=== PATIENT | female | born 1935 | race Hispanic/Latino ===

== ENCOUNTER 2018-04-06 18:07 | Inpatient (IN) | payer MEDICAID, SELFPAY ==
[2018-04-06 18:42] LABS: #Basophils 0.1 thou/uL (0.0-0.2); #Eosinphils 0.1 thou/uL (0.0-0.7); #Lymphocytes 1.3 thou/uL (1.20-3.40); #Monocytes 0.2 thou/uL (0.11-0.59); #Neutrophils 1.7 thou/uL (1.40-6.50); %Basophils 2.4 % (0.0-1.0); %Eosinophils 2.9 % (0.0-10.0); %Lymphocytes 38.7 % (21.0-51.0); %Monocytes 6.2 % (0.0-10.0); %Neutrophils 49.8 % (42.0-75.0); Hemoglobin 9.7 g/dL (12.0-16.0); Mean Corpuscular HGB CONC 33.9 g/dL (32.0-36.0); Mean Platelet Volume 6.9 fL (7.4-10.4); Platelet Count 150 thou/uL (130-400); RBC Distribution Width 13.5 % (11.5-14.5); Red Blood Cell (RBC) Count 2.84 mill/uL (4.20-5.40); White Blood Cell (WBC) Count 3.3 thou/uL (4.8-10.8)
[2018-04-06 18:52] LABS: PTT 30.2 SEC (22.9-36.1); Prothrombin Time 12.9 SEC (12.0-14.7)
[2018-04-06 19:01] LABS: ALT (SGPT) 14 U/L (8-55); AST (SGOT) 23 U/L (5-34); Albumin 2.3 g/dL (3.4-4.8); Alkaline Phosphatase 123 U/L (40-150); Anion Gap 9 mmol/L (10-20); BUN (Urea Nitrogen) 54 mg/dL (9.8-20.1); Bilirubin, Total 0.2 mg/dL (0.2-1.2); Calc. Creatinine Clearance 0 mL/min (70-130); Calcium 8.2 mg/dL (7.8-10.44); Carbon Dioxide 25 mmol/L (23-31); Chloride 103 mmol/L (98-107); Estimated GFR-MDRD 16; Globulin 3.3 g/dL (2.4-3.5); Glucose 147 mg/dL (83-110); Potassium 5.1 mmol/L (3.5-5.1); Protein, Total 5.6 g/dL (6.0-8.3); Sodium 132 mmol/L (136-145)
[2018-04-06 19:08] LABS: Bilirubin Negative (Negative); Blood, Urine Trace (Negative); Clarity CLOUDY (Clear); Glucose, Urine (Dipstick) 100 mg/dL (Negative); Leukocyte Negative (Negative); Nitrite Negative (Negative); Protein, Urine (Dipstick) 300 mg/dL (Neg-Trace); Specific Gravity, Urine 1.014 (1.002-1.036); Urobilinogen 0.2 mg/dL (0.2-1.0); pH, Urine 6.5 (5.0-9.0)
[2018-04-06 19:10] LABS: Pathc Cast-AUWi Flag 5.08 (0-2.49); WBC/HPF 0-3 HPF (0-3)
[2018-04-06 19:22] LABS: Bacteria/HPF None Seen HPF (None Seen); Hyaline Casts/LPF 0-3 HYALINE CAST LPF (0-3 Hyaline); Manual Microscopic Reviewed? No Path Casts Seen; Renal Epithelial None Seen HPF (0-3); Transitional Epithelial NONE SEEN HPF (0-3)
--- NOTE | 2018-04-06 20:11 | CT ---
CT BRAIN 04/06/18 PROVIDED CLINICAL HISTORY: Slurred speech. FINDINGS: Comparison 08/01/15. The ventricular system appears normal in size and morphology. There is no evidence for intracranial hemorrhage. Chronic microvascular ischemic changes are again noted slightly advanced with respect to the prior study. The extracranial soft tissues and osseous structures demonstrate no acute findings. IMPRESSION: No evidence for intracranial hemorrhage or mass effect. Findings communicated to Dr. Kan at 6:19 p.m., 04/06/18. Code CR POS: ELEN
--- NOTE | 2018-04-06 21:06 | RAD ---
PORTABLE CHEST 04/06/18 PROVIDED CLINICAL HISTORY: Speech changes. FINDINGS: Comparison 08/13/15. The cardiac and mediastinal silhouette is within normal limits. Right suprahilar opacity is noted. Th e lungs appear otherwise clear. No pleural or pneumothorax apparent. IMPRESSION: Right suprahilar opacity, which could reflect pneumonia in the appropriate clinical context. Radiogra phic followup to evaluate for resolution is recommended. POS: ELEN
[2018-04-06] MEDS ORDERED: Calcium Carbonate 500 MG ChewTAB PO PRN (23:29)
[2018-04-06] MEDS ORDERED: Zolpidem Tartrate 5 MG TAB PO PRN (23:29)
[2018-04-06] MEDS ORDERED: Ondansetron PF 4 MG/2 ML Vial IVP PRN (23:29)
[2018-04-06] MEDS ORDERED: hydrALAZINE 20 MG/ML VIAL SLOW IVP PRN (23:29)
[2018-04-06] MEDS ORDERED: Bisacodyl 5 MG TAB PO PRN (23:29)
[2018-04-06] MEDS ORDERED: Senokot S 8.6-50 MG TAB PO PRN (23:29)
[2018-04-06] MEDS ORDERED: Ondansetron ODT 4 MG TAB PO PRN (23:29)
[2018-04-06] MEDS ORDERED: Labetalol HCl 100 MG/20 ML VIAL SLOW IVP PRN (23:29)
[2018-04-06] MEDS ORDERED: Acetaminophen 325 MG TAB PO PRN (23:29)
[2018-04-06] MEDS ORDERED: Guaifenesin DM 100-10/5 ML UDCUP PO PRN (23:29)
[2018-04-06] MEDS ORDERED: Sodium Chloride 0.9% 1,000 ML IV SCH (23:30)
[2018-04-06] MEDS ORDERED: traMADol HCl 50 MG TAB PO PRN (23:33)
[2018-04-06] MEDS ORDERED: Dextrose 50% Abboject 50 ML SYRINGE SLOW IVP PRN (23:34)
[2018-04-06] MEDS ORDERED: HumaLOG 300 UNITS/3 ML VIAL SC PRN ×2 (23:34)
[2018-04-06] MEDS ORDERED: Dextrose 5% in Water 1,000 ML IV PRN (23:34)
[2018-04-07 04:01] LABS: #Eosinphils 0.1 thou/uL (0.0-0.7); #Monocytes 0.2 thou/uL (0.11-0.59); #Neutrophils 1.9 thou/uL (1.40-6.50); %Eosinophils 1.6 % (0.0-10.0); %Lymphocytes 31.8 % (21.0-51.0); %Monocytes 7.1 % (0.0-10.0); %Neutrophils 58.4 % (42.0-75.0); Hemoglobin 7.8 g/dL (12.0-16.0); Mean Corpuscular HGB CONC 34.2 g/dL (32.0-36.0); Mean Corpuscular Hemoglobin 34.2 pg (27.0-31.0); Mean Corpuscular Volume 99.9 fL (78.0-98.0); Mean Platelet Volume 6.9 fL (7.4-10.4); Platelet Count 130 thou/uL (130-400); RBC Distribution Width 13.3 % (11.5-14.5); Red Blood Cell (RBC) Count 2.28 mill/uL (4.20-5.40); White Blood Cell (WBC) Count 3.3 thou/uL (4.8-10.8)
[2018-04-07 04:25] LABS: Albumin 1.9 g/dL (3.4-4.8); Anion Gap 10 mmol/L (10-20); BUN (Urea Nitrogen) 54 mg/dL (9.8-20.1); BUN/Creatinine Ratio 19.01; Calc. Creatinine Clearance 0 mL/min (70-130); Calcium 7.8 mg/dL (7.8-10.44); Carbon Dioxide 24 mmol/L (23-31); Cardiac Risk 2.6 (Less than 4.5); Chloride 104 mmol/L (98-107); Cholesterol 140 mg/dl (< 200 Desired); Estimated GFR-MDRD 16; Glucose 142 mg/dL (83-110); HDL Cholesterol 53 mg/dL (>60 Neg Risk); LDL Cholesterol, Calculated 73 mg/dL; Phosphorus 3.3 mg/dL (2.3-4.7); Sodium 133 mmol/L (136-145); Triglycerides 68 mg/dL (Less than 150)
[2018-04-07 06:20] LABS: Albumin 2.1 g/dL (3.4-4.8); Anion Gap 8 mmol/L (10-20); BUN (Urea Nitrogen) 53 mg/dL (9.8-20.1); BUN/Creatinine Ratio 18.73; Calc. Creatinine Clearance 0 mL/min (70-130); Calcium 7.9 mg/dL (7.8-10.44); Carbon Dioxide 26 mmol/L (23-31); Chloride 104 mmol/L (98-107); Estimated GFR-MDRD 16; Glucose 115 mg/dL (83-110); Phosphorus 3.3 mg/dL (2.3-4.7); Sodium 133 mmol/L (136-145)
--- NOTE | 2018-04-07 06:50 | HP ---
CHIEF COMPLAINT: Urinary retention, alteration of awareness. HISTORY OF PRESENT ILLNESS: This is an 82-year-old female with past medical history significant for recurrent multiple admissions for confusion, alteration of awareness, deconditioning, muscle wasting, diabetes mellitus type 2, hypertension, chronic constipation, osteoporosis, recurrent C diff infection in the past, presenting with confusion and alteration of awareness plus urinary retention. Per records, the patient has a history of staghorn calculus in the past and the patient has been treated for multiple episodes of UTI requiring Rocephin. For this visit, the patient is coming in because the patient has not been at her baseline. Per the family, the patient usually is able to recognize everyone in the room and her environment. However, for the past 3 days, the patient has not been able to urinate and the patient is mildly confused. Of note, she was last seen in our hospital on 08/13/2015, and during that time, the patient was admitted for UTI, hypoglycemia, sepsis, and acute on chronic kidney failure. REVIEW OF SYSTEMS: Unable to be obtained due to patient's altered mental status. PMH: DMII, recurrent UTI, CVA 07/2014, HTN FHX: Reviewed non-contributory to this visit SH: appendectomy, cholecystectomy, L hip repiar CURRENT MEDICATIONS: ASA 81. Refer to MAR to other after reconciliation with patient's pharmacy. SOCIAL HISTORY: Lives at home with family. No Etoh use, No illicit drug use, No smoking history PHYSICAL EXAMINATION: VITAL SIGNS: Blood pressure is 198/92, pulse of 72, respiratory rate of 18, O2 saturation is 99. GENERAL: The patient is lying in bed, alert and oriented to self, but not to time. The patient is confused. The patient is cachectic and frail. The patient is not in any distress at this time. HEENT: Normocephalic, atraumatic. Pupils are equally round and reactive to light. Extraocular movements are intact. No scleral icterus. No conjunctival pallor. Mucous membranes are dry. NECK: Trachea is midline. No JVD. Full range of motion, supple. RESPIRATORY: The patient has bilateral rhonchi and rales that can be appreciated at the anterior lung vallejo and the posterior lung vallejo. CARDIAC: Positive S1 and S2. Regular rate and rhythm. No murmurs, no gallops , no rubs appreciated. ABDOMEN: Soft, nontender, nondistended, tympanic. No peritoneal signs. GENITOURINARY: The patient has a Castillo inserted with blood-tinged urine. EXTREMITIES: The patient has bilateral upper extremity weakness, 4/5. Good pulses of the radial pulses bilaterally. At the lower extremities, the patient is contracted with bilateral 2+ edema noted, 2/4 pulses bilaterally at the lower extremities at the dorsalis pedis. NEUROLOGIC: Cranial nerves II through XII are grossly intact. No neurologic deficits noted at this time. SKIN: Poor skin turgor. No rashes seen. Warm, dry, and intact. PSYCHIATRIC: The patient is confused. LABORATORY DATA: WBC is 3.3, hemoglobin is 9.7, hematocrit 28.5, MCV is 100.0, RDW is 13.5, and platelets [id number]. PT is 12.9, INR is 1.0, PTT 30.2. Sodium is 132, potassium is 5.1, chloride is 103, carbon dioxide is 25, anion gap of 9, BUN is 54, creatinine is 2.88. Glucose 147. Lactic acid 1.0. AST 23, ALT 14. Troponin 0.018. Urinalysis; the patient has negative nitrite and negative leuko esterase. Chest x-ray shows that there is a right suprahilar opacity which could reflect pneumonia in the appropriate clinical context. ASSESSMENT AND PLAN: This is an 82-year-old female, being admitted for; 1. Alteration of awareness, likely due to worsening dementia. At this point, per daughter, the patient has always been alert and oriented to her surroundings, but the patient is currently confused. The patient's underlying confusion can be due to possible infection, however, dementia is more likely. At this point, we are going to admit the patient and worked the patient up for CVA rule out. We have ordered MRI of the head. We will follow up on MRI of the head in the a.m. We have given the patient aspirin and atorvastatin. We will continue this. We will get neuro consult. We will follow up with Neurology. 2. Acute on chronic kidney failure. At this time, we have consulted Nephrology. We will hold off all nephrotoxic drugs and we will renally dose all medications at this time. We will monitor the patient's creatinine closely and we will order renal function panel and we will follow up on these exams in the a.m. At this time, the patient do have a Castillo in place and Castillo is draining blood-tinged urine during due to traumatic insertion. 3. Community-acquired pneumonia. At this point, we will start the patient on antibiotics. We will continue IV antibiotics and we will monitor the patient closely. 4. Diabetes mellitus type 2, uncontrolled. We will continue the patient on insulin sliding scale. 5. Hypertension. We will monitor the patient's blood pressure closely and we will treat the patient's blood pressure accordingly. 6. Physical deconditioning. At this time, the patient will benefit from PT and OT. We will consult Case Management for further recommendation regarding placement. 7. Deep venous thrombosis and gastrointestinal prophylaxis have been addressed. Job ID: [id number] MTDD
[2018-04-07 07:16] VITALS: BMI 24.4
[2018-04-07] MEDS ORDERED: cefTRIAXone\\ROCEPHIN 2 GM in Sodium Chloride 0.9% 100 ML IVPB SCH (08:00)
[2018-04-07] MEDS ORDERED: Azithromycin 500 MG in Sodium Chloride 0.9% 250 ML 250 ML IVPB SCH (09:00)
--- NOTE | 2018-04-07 10:15 | PDOC.PN ---
- Subjective Encounter Start Date: 04/07/18 Encounter Start Time: 10:13 Ms. Adler was seen today in follow-up of latered mental status, and pneumonia. Her speech is not clear, and family says it has been this way for the past 4 days. She complains of a headache, and some chest discomfort. - Objective Resuscitation Status - Order Detail: 04/06/18 23:29 Resuscitation Status Routine Resuscitation Status: FULL: Full Resuscitation MAR Reviewed: Yes Vital Signs & Weight: Weight Weight 125 lb 0.034 oz Result Diagrams: 04/07/18 03:38 04/07/18 05:59 Additional Labs: Accuchecks 04/07/18 04/06/18 04:13 18:10 POC Glucose 135 H 154 H Phys Exam - Physical Examination HEENT: PERRLA + rales at the bases, and decreased breath sounds at the bases Cardiovascular: RRR, no significant murmur, no rub Gastrointestinal: soft, non-tender, no distention, positive bowel sounds Musculoskeletal: pulses present, edema present 2+ pitting edema in both lower extremities + dysarthria Dx/Plan (1) Metabolic encephalopathy Code(s): G93.41 - METABOLIC ENCEPHALOPATHY Status: Acute (2) Pneumonia Code(s): J18.9 - PNEUMONIA, UNSPECIFIED ORGANISM Status: Acute (3) CKD (chronic kidney disease), stage III Status: Chronic (4) Diabetes type 2, controlled Code(s): E11.9 - TYPE 2 DIABETES MELLITUS WITHOUT COMPLICATIONS Status: Chronic (5) Hypertension Code(s): I10 - ESSENTIAL (PRIMARY) HYPERTENSION Status: Chronic - Plan * Acute Metabolic encephalopathy- likely from Pneumonia, and possible CVA * Pneumonia- community acquired vs. Aspiration- will add Flagyl in the event this is due to aspiration, as her speech is not clear- surprisingly she passed the bedside swallow evaluation * Dysarthria- MRI to rule out CVA has been ordered- will also have Speech to do a formal swallow evaluation in order to determine the best consistency of food * DM- until she is eating, will continue with SSI only * HTN- blood pressure is a bit elevated- will re-start Amlodipine, crushed with apple sauce, and PRN Hydralazine * CKD- stable.
[2018-04-07] MEDS ORDERED: Famotidine 20 MG TAB ONE (11:31)
[2018-04-07] MEDS: Amlodipine 10 MG TAB PO SCH (11:51)
[2018-04-07] MEDS: Cyanocobalamin (Vitamin B-12) 1,000 MCG TAB PO SCH (11:55)
[2018-04-07] MEDS: Famotidine 20 MG TAB PO SCH ×2 (11:55→21:48)
[2018-04-07] MEDS: Folic Acid 1 MG TAB PO SCH (11:56)
[2018-04-07] MEDS: Famotidine/PF 20 mg/2ml Vial SLOW IVP SCH ×2 (11:56→21:48)
[2018-04-07] MEDS: Saccharomyces boulardii 250 MG CAP PO SCH (11:56)
--- NOTE | 2018-04-07 14:06 | MRI ---
MRI BRAIN WITHOUT CONTRAST: Technique: Multiplanar, multisequential imaging of the brain obtained. Indications: TIA. FINDINGS: Exam is severely limited due to motion artifact on all sequences. No evidence of restricted diffusion . Ventricles are of normal size. There is moderate cortical volume loss. Moderate chronic ischemic wh ite matter change. Intracranial internal carotid arteries, proximal cerebral arteries and basilar arteries show flow voi ds. IMPRESSION: 1. No evidence of acute infarct. 2. Moderate chronic ischemic white matter change and cortical atrophy. POS: ELEN
[2018-04-07] MEDS: Heparin 5,000 UNITS/ML VIAL SC SCH ×2 (14:42→21:47)
[2018-04-07] MEDS: Multivitamin W/ Minerals 1 TAB PO SCH (14:43)
[2018-04-07] MEDS: Aspirin 81 mg Enteric Coated Tablet PO SCH (14:43)
[2018-04-07] MEDS: Atorvastatin Calcium 40 MG TAB PO SCH (21:47)
--- NOTE | 2018-04-08 01:04 | CON ---
DATE OF CONSULTATION: CONSULTING PHYSICIAN: Dr. Hart. REQUESTING PHYSICIAN: Dr. Lopez. REASON FOR CONSULTATION: Acute on chronic kidney disease. IMPRESSION: 1. Acute on chronic kidney disease, this is likely cytokine mediated in the context of infection. 2. Chronic kidney disease, baseline. 3. Anemia, possibly anemia of chronic kidney disease plus or minus iron deficiency. 4. Mild hyponatremia. PLAN: 1. Renally dose all medications for low GFR. 2. Avoid potentially nephrotoxic agents. 3. Iron studies to evaluate for potential iron deficiency. 4. Further management will be dependent on the clinical course. HISTORY OF PRESENT ILLNESS: An 82-year-old female patient with a known history of chronic kidney disease, who presented here with altered mental status and found to have evidence of worsening renal dysfunction as evidenced by creatinine of 2.84, above the baseline creatinine on this patient lies in the 1 range. The patient does have a history of urinary retention for which Castillo catheter has been placed this might have contributed to the renal dysfunction in this patient. PAST MEDICAL HISTORY: Significant for dementia, chronic kidney disease, recurrent confusional state, type 2 diabetes, constipation, and osteoporosis. MEDICATIONS: Reviewed and as documented on [employer]. REVIEW OF SYSTEMS: Could not be obtained from this patient. FAMILY HISTORY: Significant for kidney disease in the son. SOCIAL HISTORY: No alcohol. No tobacco. No illicit drug use. PHYSICAL EXAMINATION: GENERAL: The patient was found to be confused. VITAL SIGNS: With the following vital signs; afebrile with temperature 97.8, pulse 71, respiratory rate of 16, O2 saturations are 95% with blood pressure of 131/71. HEENT: Unremarkable. Moist oral mucosa. NECK: Supple. No conjunctival injection or icterus CARDIOVASCULAR SYSTEM: First and second heart sounds were heard. RESPIRATORY SYSTEM: Clear to auscultation. DIGESTIVE SYSTEM: Revealed umbilical hernia, tympanitic. EXTREMITIES: Some peripheral edema. SUMMARY: An 82-year-old female patient with chronic kidney disease, who presented here with altered mental status, found to have worsening renal dysfunction. Thank you for this consultation. We will follow with you. Job ID: [id number]
[2018-04-08] MEDS: Famotidine/PF 20 mg/2ml Vial SLOW IVP SCH ×2 (08:51→22:15)
[2018-04-08] MEDS: Amlodipine 10 MG TAB PO SCH (08:52)
[2018-04-08] MEDS: Cyanocobalamin (Vitamin B-12) 1,000 MCG TAB PO SCH (08:53)
[2018-04-08] MEDS: Famotidine 20 MG TAB PO SCH ×2 (08:53→22:15)
[2018-04-08] MEDS: Multivitamin W/ Minerals 1 TAB PO SCH (08:53)
[2018-04-08] MEDS: Saccharomyces boulardii 250 MG CAP PO SCH (08:53)
[2018-04-08] MEDS: Folic Acid 1 MG TAB PO SCH (08:53)
[2018-04-08] MEDS: Aspirin 81 mg Enteric Coated Tablet PO SCH (08:53)
[2018-04-08] MEDS: Heparin 5,000 UNITS/ML VIAL SC SCH ×2 (08:55→22:04)
[2018-04-08] MEDS: cefTRIAXone\\ROCEPHIN 1 GM in Sodium Chloride 0.9% 100 ML IVPB SCH (09:11)
[2018-04-08] MEDS ORDERED: Sodium Chloride 0.9% 1,000 ML IV SCH (09:30)
--- NOTE | 2018-04-08 09:34 | PDOC.PN ---
- Subjective Encounter Start Date: 04/08/18 Encounter Start Time: 09:33 -: old records requested/rev Pt seen and examined, chart reviewed in its entirety, this si my first visit with this patient follow up for UTI, POA, and metabolic encephalopathy, MANISH on CKD not on fluids, eating some with assistance. No F/C, no N/V/D/C ROS not obtainable due to AMS - Objective Resuscitation Status - Order Detail: 04/07/18 14:05 Resuscitation Status Routine Resuscitation Status: DNAR: NO Resuscitation Discussed with: confirmed with 3 daughters, LISSETH acting as wildlife ecologist, Additional comments: OOH on chart, family is aware of this and wish to cont her DNaR status MAR Reviewed: Yes Vital Signs & Weight: Vital Signs (12 hours) Temp Pulse Resp BP BP Pulse Ox 04/08/18 08:52 69 158/74 H 04/08/18 07:44 97.6 F 69 17 158/74 H 99 04/08/18 04:00 97.4 F L 72 19 169/75 H 100 04/08/18 00:00 97.6 F 70 18 161/70 H 99 04/07/18 21:50 97.4 F L 68 20 137/71 99 Weight Weight 125 lb 0.034 oz I&O: 04/07/18 04/08/18 04/09/18 06:59 06:59 06:59 Intake Total 300 Output Total 850 Balance -550 Result Diagrams: 04/07/18 03:38 04/07/18 05:59 Additional Labs: Accuchecks 04/08/18 04/07/18 04/07/18 06:14 21:21 16:43 POC Glucose 120 H 146 H 128 H Radiology Reviewed by me: Yes EKG Reviewed by me: Yes Phys Exam - Physical Examination Constitutional: NAD HEENT: PERRLA, moist MMs, sclera anicteric, oral pharynx no lesions Neck: no nodes, no JVD, supple, full ROM Respiratory: no wheezing, no rales, no rhonchi, clear to auscultation bilateral Cardiovascular: RRR, no significant murmur, no rub Gastrointestinal: soft, non-tender, no distention, positive bowel sounds Musculoskeletal: no edema, pulses present Neurological: non-focal, normal sensation, moves all 4 limbs Lymphatic: no nodes Deviation from normal: slurred speech Skin: no rash, normal turgor, cap refill <2 seconds Dx/Plan - Plan * .
[2018-04-08] MEDS: Azithromycin 250 MG in Sodium Chloride 0.9% 250 ML 250 ML IVPB SCH (10:05)
--- NOTE | 2018-04-08 15:25 | RAD ---
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 TECHNIQUE: Real-time fluoroscopic examination was performed, in conjunction with the speech therapy department. Please see their dictation for full details concerning the materials administered. TOTAL FLUOROSCOPIC TIME: 3.1 minutes. TOTAL EXPOSURE: 1.642 Gy per cm2. FINDINGS: The patient had episodes of premature spill with all barium consistencies. The patient had a promine nt amount of residua with all consistencies. The patient had evidence of tracheal penetration with t hin barium liquids and barium-impregnated nectar. The patient did have an episode of silent tracheal aspiration with barium-impregnated liquids and retained puree. IMPRESSION: 1. Abnormal modified barium swallow. 2. Episodes of silent tracheal aspiration with penetration with thin barium liquids and puree residu al in pyriformis. Please see the speech therapy dictation for full details concerning this exam. POS: ELEN
[2018-04-08] MEDS ORDERED: Lorazepam 1 MG TAB PO SCH (19:00)
[2018-04-08] MEDS ORDERED: Lorazepam 2 MG/ML VIAL SLOW IVP SCH (19:00)
--- NOTE | 2018-04-08 19:26 | PRG ---
DATE OF SERVICE: 04/08/2018 SUBJECTIVE: The patient was seen and examined with no new complaint. Noted with the following vital signs. OBJECTIVE: VITAL SIGNS: Afebrile, temperature 97.4, pulse 67, respiratory rate of 18, O2 saturation is 100% with blood pressure 160/56. HEENT: Unremarkable. Moist oral mucosa. NECK: Supple. No conjunctival injection or icterus. CARDIOVASCULAR SYSTEM: First and second heart sounds were heard. RESPIRATORY SYSTEM: Clear to auscultation. DIGESTIVE SYSTEM: Revealed a benign abdomen. EXTREMITIES: Showed some peripheral edema. LABORATORY INVESTIGATION: Showed a creatinine still at 2.84, BUN of 54, and sodium 133. IMPRESSION: 1. Acute on chronic kidney disease versus new baseline chronic kidney disease, stage 4. 2. Hyponatremia. PLAN: 1. We will continue current renal supportive measures. 2. Further management to be dependent on the clinical course. Job ID: [id number]
[2018-04-08] MEDS: Atorvastatin Calcium 40 MG TAB PO SCH (22:15)
[2018-04-09 01:15] VITALS: TEMP 96.7
[2018-04-09 04:48] LABS: #Eosinphils 0.1 thou/uL (0.0-0.7); #Lymphocytes 1.1 thou/uL (1.20-3.40); #Monocytes 0.2 thou/uL (0.11-0.59); #Neutrophils 1.8 thou/uL (1.40-6.50); %Basophils 0.4 % (0.0-1.0); %Eosinophils 2.3 % (0.0-10.0); %Lymphocytes 34.4 % (21.0-51.0); %Monocytes 6.6 % (0.0-10.0); %Neutrophils 56.3 % (42.0-75.0); Mean Corpuscular Hemoglobin 34.8 pg (27.0-31.0); Mean Corpuscular Volume 99.5 fL (78.0-98.0); Mean Platelet Volume 7.4 fL (7.4-10.4); Platelet Count 137 thou/uL (130-400); RBC Distribution Width 13.2 % (11.5-14.5); Red Blood Cell (RBC) Count 2.29 mill/uL (4.20-5.40); White Blood Cell (WBC) Count 3.2 thou/uL (4.8-10.8)
[2018-04-09 05:04] LABS: Anion Gap 11 mmol/L (10-20); BUN (Urea Nitrogen) 57 mg/dL (9.8-20.1); Calc. Creatinine Clearance 13 mL/min (70-130); Calcium 7.9 mg/dL (7.8-10.44); Carbon Dioxide 23 mmol/L (23-31); Chloride 107 mmol/L (98-107); Estimated GFR-MDRD 15; Glucose 72 mg/dL (83-110); Potassium 4.6 mmol/L (3.5-5.1); Sodium 136 mmol/L (136-145)
[2018-04-09 08:05] VITALS: BP 140/72
[2018-04-09] MEDS: cefTRIAXone\\ROCEPHIN 1 GM in Sodium Chloride 0.9% 100 ML IVPB SCH (08:15)
[2018-04-09] MEDS: Azithromycin 250 MG in Sodium Chloride 0.9% 250 ML 250 ML IVPB SCH (08:16)
[2018-04-09] MEDS: Amlodipine 10 MG TAB PO SCH (09:30)
[2018-04-09] MEDS: Heparin 5,000 UNITS/ML VIAL SC SCH (09:30)
[2018-04-09] MEDS: Famotidine 20 MG TAB PO SCH (09:31)
[2018-04-09] MEDS: Aspirin 81 mg Enteric Coated Tablet PO SCH (09:31)
[2018-04-09] MEDS: Folic Acid 1 MG TAB PO SCH (09:31)
[2018-04-09] MEDS: Cyanocobalamin (Vitamin B-12) 1,000 MCG TAB PO SCH (09:31)
[2018-04-09] MEDS: Saccharomyces boulardii 250 MG CAP PO SCH (09:31)
[2018-04-09] MEDS: Multivitamin W/ Minerals 1 TAB PO SCH (09:32)
[2018-04-09] MEDS: Famotidine/PF 20 mg/2ml Vial SLOW IVP SCH (09:50)
--- NOTE | 2018-04-09 14:54 | PDOC.EVN ---
Event Note - Event Note Event Note: DC SUMMARY #[id number]
--- NOTE | 2018-04-10 13:38 | DIS ---
DATE OF ADMISSION: 04/07/2018 DATE OF DISCHARGE: 04/09/2018 ADMITTING DIAGNOSES: 1. Urinary retention. 2. Altered mental status. 3. Diabetes mellitus type 2. 4. History of cerebrovascular accident. 5. Hypertension. 6. Vasculopathy. DISCHARGE DIAGNOSES: 1. Urinary retention. 2. Altered mental status. 3. Diabetes mellitus type 2. 4. History of cerebrovascular accident. 5. Hypertension. 6. Vasculopathy. HOSPITAL COURSE: This is an 82-year-old female presenting to the hospital complaining of recurrent episodes of confusion, diabetes mellitus type 2, muscle wasting, deconditioning as well as an overall reduction in clinical function. The patient apparently was in hospice about two years ago, however was removed off hospice that she had clinically improved. At this point in time, the patient's condition and clinical symptoms have considerably significantly declined. Per family discussion, as well as workup done in the hospital, it was decided that the patient will be placed in hospice one more time. [facility] was discussed and had accepted the patient. The patient is to follow up with [facility] for further management and care and to pursue a comfort care type of plan. CONDITION: Stable. PROGNOSIS: Terminal. ACTIVITY: As tolerated with assistance as needed. DIET: As the patient wishes. MEDICATIONS: See Mar; however, hospice to arrange any medication changes as needed. Case and plan discussed with the patient and family at length in Syriac. They understand and agreed with this plan. Job ID: [id number]
--- NOTE | 2018-04-10 21:26 | EKG ---
Test Reason : STROKE ALERT Blood Pressure : / mmHG Vent. Rate : 072 BPM Atrial Rate : 072 BPM P-R Int : 170 ms QRS Dur : 064 ms QT Int : 362 ms P-R-T Axes : 063 031 106 degrees QTc Int : 396 ms Normal sinus rhythm Low voltage QRS Cannot rule out Anteroseptal infarct , age undetermined Abnormal ECG Confirmed by JAMIE YOUNGBLOOD ([id number]), photographic editor SALVATORE COLON ([id number]) on 04/10/2018 9:25:51 PM Referred By: Confirmed By:JAMIE YOUNGBLOOD
== END 2018-04-09 13:15 | disposition hospice, home (50) | DRG 682 ==
LOC: ERS 18:07 → ERHOLD 20:31 → OBSVTOIN 04-07 09:44 → 2SE 04-07 12:57
PROVIDERS: ADMIT Emergency Medicine; ATTEND Emergency Medicine
DX: N17.9 Acute kidney failure, unspecified (principal); G93.41 Metabolic encephalopathy; J18.9 Pneumonia, unspecified organism; E87.1 Hypo-osmolality and hyponatremia; N39.0 Urinary tract infection, site not specified; R33.9 Retention of urine, unspecified; F03.90 Unspecified dementia, unspecified severity, without behavioral disturbance, psychotic disturbance, mood disturbance, and anxiety; E11.22 Type 2 diabetes mellitus with diabetic chronic kidney disease; E11.65 Type 2 diabetes mellitus with hyperglycemia; Z66 Do not resuscitate; N18.3 Chronic kidney disease, stage 3 (moderate); R13.10 Dysphagia, unspecified; D63.1 Anemia in chronic kidney disease; I12.9 Hypertensive chronic kidney disease with stage 1 through stage 4 chronic kidney disease, or unspecified chronic kidney disease; E11.51 Type 2 diabetes mellitus with diabetic peripheral angiopathy without gangrene; K59.09 Other constipation; M81.0 Age-related osteoporosis without current pathological fracture; Z79.82 Long term (current) use of aspirin; Z86.19 Personal history of other infectious and parasitic diseases
CPT/HCPCS: 36415; 36416; 70450; 70551; 71045; 74230; 80048; 80053; 80061; 80069; 81003; 81015; 82140; 83605; 84484; 85025; 85610; 85730; 87040; 87086; 93005; 93306; J0456; J0696; J1644; J2060; J7050; S0028